=== PATIENT | female | born 1955 | race Caucasian/White ===

== ENCOUNTER 2017-11-02 11:08 | Outpatient (CLI) | payer OTHER ==
--- NOTE | 2017-11-02 15:59 | MMO ---
BILATERAL DIGITAL SCREENING MAMMOGRAMS: History: 62-year-old female presents for digital screening mammography. Comparison: 10-27-16, 10-07-15, 09-26-14 This study is interpreted with the assistance of computer aided detection. FINDINGS: The breasts are heterogeneously dense which could obscure small masses. Stable circumscribed density in the inner aspect of the right breast. Typically benign calcifications in the left breast with a bi opsy clip in the left breast. No direct or indirect evidence of malignancy. IMPRESSION: BIRADS category 2 - benign findings. Continued annular follow up mammograms recommended. POS: [facility]IK[facility]
== END 2017-11-02 11:09 | disposition home or self-care (01) ==
LOC: SCSMAMMO 11:08
PROVIDERS: ATTEND Obstetrics & Gynecology
DX: Z12.31 Encounter for screening mammogram for malignant neoplasm of breast (principal)
CPT/HCPCS: 77067

== ENCOUNTER 2018-11-09 08:28 | Outpatient (CLI) | payer OTHER ==
--- NOTE | 2018-11-09 09:06 | BD ---
EXAM: DEXA bone density examination HISTORY: Osteoporosis screening COMPARISON: None FINDINGS: L1--bone mineral density 0.699 g/sq cm; T score -2.6. Z score -1.3 L2--bone mineral density 0.759 g/sq cm; T score -2.4; Z score -1.0 L3--bone mineral density 0.755 g/sq cm; T score -3.0; Z score -1.5 L4--bone mineral density 0.763 g/sq cm; T score -2.7, Z score -1.1 Total L1-L4--bone mineral density 0.746 g/sq cm; T score -2.7, Z score -1.3 Left femoral neck--bone mineral density0.602; T score -2.2, Z score -0.9 Total proximal left femur--bone mineral density 0.807; T score -1.1, Z score -0.1 IMPRESSION: Based on the WHO criteria, the patient's bone mineral density is consideredOsteoporotic. The patient is at high risk for fracture.
--- NOTE | 2018-11-09 09:12 | MMO ---
Bilateral MAMMO Bilat Screen [facility]. CLINICAL HISTORY: Patient is 63 years old and is seen for screening. The patient has the following family history of breast cancer: maternal grandmother and paternal grandmother. The patient has no personal history of cancer. The patient has a history of right needle biopsy in 2012 - benign and Cyst Aspiration in 2009. VIEWS: The views performed were: bilateral craniocaudal with tomosynthesis and bilateral mediolateral oblique with tomosynthesis. FILMS COMPARED: The present examination has been compared to prior imaging studies performed at [facility] on 09/26/2014, 10/07/2015, 10/27/2016 and 11/02/2017. MAMMOGRAM FINDINGS: The breasts are heterogeneously dense, which could obscure a lesion on mammography. Finding 1: There are benign appearing calcifications seen in both breasts. Finding 2: There is a biopsy clip seen in the left breast. There are no suspicious masses, suspicious calcifications, or new areas of architectural distortion. IMPRESSION: THERE IS NO MAMMOGRAPHIC EVIDENCE OF MALIGNANCY. A ROUTINE FOLLOW-UP MAMMOGRAM IN 1 YEAR IS RECOMMENDED. THE RESULTS OF THIS EXAM WERE SENT TO THE PATIENT. ACR BI-RADS Category 2 - Benign finding MAMMOGRAPHY NOTE: 1. A negative mammogram report should not delay a biopsy if a dominant of clinically suspicious mass is present. 2. Approximately 10% to 15% of breast cancers are not detected by mammography. 3. Adenosis and dense breasts may obscure an underlying neoplasm.
== END 2018-11-09 08:29 | disposition home or self-care (01) ==
LOC: BICMAMMO 08:28
PROVIDERS: ATTEND Obstetrics & Gynecology
DX: Z12.31 Encounter for screening mammogram for malignant neoplasm of breast (principal); Z13.820 Encounter for screening for osteoporosis; M81.0 Age-related osteoporosis without current pathological fracture; Z80.3 Family history of malignant neoplasm of breast
CPT/HCPCS: 77063; 77067; 77080